=== PATIENT | male | born 1985 | race Caucasian/White ===

== ENCOUNTER → 2024-01-18 13:11 | Outpatient (REF) | payer BC, SELFPAY | LOC: RCS 13:11 | PROVIDERS: ATTENDING PHYSICIAN Internal Medicine; FAMILY PHYSICIAN Family Medicine | DX: R07.9 Chest pain, unspecified (principal); E78.00 Pure hypercholesterolemia, unspecified; R73.03 Prediabetes | CPT/HCPCS: 93306 ==

== ENCOUNTER → 2024-01-25 14:21 | Outpatient (REF) | payer BC, SELFPAY | LOC: RCS 14:21 | PROVIDERS: ATTENDING PHYSICIAN Internal Medicine; FAMILY PHYSICIAN Family Medicine | DX: R07.9 Chest pain, unspecified (principal); E78.00 Pure hypercholesterolemia, unspecified; R73.03 Prediabetes | CPT/HCPCS: 93017 ==

== ENCOUNTER → 2024-06-26 12:42 | Outpatient (REF) | payer BC, SELFPAY | LOC: PAVMRI 12:42 | PROVIDERS: ATTENDING PHYSICIAN Family Medicine | DX: Q85.1 Tuberous sclerosis (principal); R68.89 Other general symptoms and signs; R51.9 Headache, unspecified | CPT/HCPCS: 70553; A9575 ==